=== PATIENT | female | born 1995 | race Caucasian/White ===

== ENCOUNTER 2016-11-18 06:00 | Day surgery (SDC) | payer BC ==
[~2016-11-18 06:00] MED LIST: Buffered Lidocaine 1% SYR 3ML* 3 ML/SYR SYRINGE INTRADERM ONE
[2016-11-18 06:24] LABS: UR Preg Internal Control QC Line Present
[2016-11-18] MEDS ORDERED: ceFAZolin 2 GM PREMIX (*) 2 GM/50 ML BAG IVPB ONE (06:31)
[2016-11-18] MEDS ORDERED: Bupivacaine 0.5% SDV PF* 30 ML VIAL ONE (07:11)
[2016-11-18] MEDS ORDERED: fentaNYL* 50 MCG/ML 2 ML VIAL (100 MCG VIAL) ONE ×3 (07:25→09:55)
[2016-11-18] MEDS ORDERED: Midazolam* 1 MG/ML 5 ML VIAL (5 MG) ONE (07:25)
[2016-11-18] MEDS ORDERED: EPHEDrine (Pressors)* 50 MG/ML VIAL ONE (07:54)
[2016-11-18] MEDS ORDERED: HYDROcodone/ACETAMIN 5-325 MG* 1 TAB PO PRN (08:35)
[2016-11-18] MEDS ORDERED: Ketorolac INJ* 30 MG/ML 1 ML VIAL IV PRN (08:35)
[2016-11-18] MEDS ORDERED: DiMENhydriNATE IV* 50 MG/ML VIAL IV PUSH PRN (08:35)
[2016-11-18] MEDS ORDERED: Propofol* 10 MG/ML 20 ML BTL IV PUSH ONE (09:23)
[2016-11-18] MEDS ORDERED: Ketorolac INJ* 30 MG/ML 1 ML VIAL ONE (09:48)
[2016-11-18] MEDS ORDERED: HYDROcodone/ACETAMIN 5-325 MG* 1 TAB ONE (09:48)
[2016-11-18] MEDS: fentaNYL* 50 MCG/ML 2 ML VIAL (100 MCG VIAL) IV PRN ×2 (09:56→10:01)
[2016-11-18] MEDS ORDERED: oxyCODONE TAB* 5 MG TAB ONE (10:14)
[2016-11-18 10:49] VITALS: BP 151/83
--- NOTE | 2016-11-18 22:38 | OP ---
DATE OF OPERATION: 11/18/16 - [facility] DATE OF : [birth year] SURGEON: Alexis Cormier MD AVIONICS SYSTEMS ENGINEER: Aminah Mullins PA-C. ANESTHESIOLOGIST: Serg Trammell MD ANESTHESIA: Spinal PRE-OP DIAGNOSIS: Left ankle instability and peroneal tendon subluxation. POST-OP DIAGNOSIS: Left ankle instability and peroneal tendon subluxation OPERATIVE PROCEDURE: Reconstruction left ATFL with allograft, semitendinosus and groove deepening, left peroneal tendon. DESCRIPTION OF PROCEDURE: The patient was taken to the operating room where longitudinal incision was made over the distal fibula curving down toward the sinus tarsi area. We opened up over the peroneal tendons sheath by reflecting the peroneal retinaculum directly off the back of the fibula. The tendons themselves appear to be intact. There was some mild synovitis around the tendons, which was debrided. The brevis tendon appeared to be poorly contained within the groove and so the groove deepening was performed with osteotomy while in the posterior to lateral cortical corner driving the posterior cortex anteriorly with a small bone tamp. Two bone sutures of #1 Vicryl were used with a Paul Andrew suture in the retinaculum to repair the groove and the retinaculum. We then exposed anteriorly and noted that the anterior talofibular ligament was very much attenuated in the capsule, patulent and not robust. We fashioned the semitendinosus tendon by doubling it with a 0 Vicryl suture. We placed a small C-wire right at the junction of the anterior cartilage, neck of the talus. We overdrilled this 8 mm but only to a depth of 15 mm rather. We then fed the double end of the semitendinosus into this blind hole bringing the free suture out the medial side holding it deep and anchoring it with a 6.25 x 15 mm Bio- Tenodesis plug. We then brought the tendon back over the fibular cortex laterally anchoring it with an F3 plate. Good tension was obtained on the allograft repair. We then brought the retinaculum back over the entire repair of the plate, closing with 2-0 Vicryl and aayush for the skin and a compression dressing plaster splint applied. [id number]/[facility] #: [id number] [facility]
--- NOTE | 2016-11-18 23:08 | RAD ---
CPT II Codes: 6045F INDICATION: Left ankle ligament repair and left leg pain. Fluoroscopic services provided for referring physician. 1.5 seconds of fluoroscopy time was used. 3 spot images demonstrates internal fixation of the fibula. IMPRESSION: Fluoroscopic services provided for referring physician.
== END 2016-11-18 10:40 | disposition home or self-care (01) ==
LOC: OR 06:00
PROVIDERS: ATTEND Orthopaedic Surgery
DX: M25.372 Other instability, left ankle (principal); Z87.891 Personal history of nicotine dependence; E66.9 Obesity, unspecified; Z68.39 Body mass index [BMI] 39.0-39.9, adult
CPT/HCPCS: 76001; 81025; A9270-GY; C1713; C1776; J0690; J1885; J2250; J2704; J3010; L8699

== ENCOUNTER 2017-02-15 20:19 | Emergency (ER) | payer BC ==
[2017-02-15 21:12] VITALS: BP 107/88
[2017-02-15] MEDS ORDERED: Amoxicillin/Clavulanate TAB* 875 MG PO ONE (21:57)
[2017-02-15] MEDS ORDERED: Polymyx/Trimethoprim OPTH* 10 ML BTL RIGHT EYE ONE ×2 (21:57→22:08)
--- NOTE | 2017-02-15 22:05 | UC ---
Genet Levin Rebecca, scribed for Bernadine Coleman MD on 02/15/17 at 2114 . Eye Complaint HPI - HPI Summary HPI Summary: Pt is a 21 y/o F accompanied by her twin sons who presents to [facility] c/o eye erythema and drainage of her right eye. Sx started suddenly today and have been constant since onset. Additionally c/o sore throat, nasal congestion and nonproductive cough which have both been present for 5 days. Associated pain is currently moderate, ranked 4/10 and characterized as an ache. Pt states he 2 sons who are also here as pt have had similar sx ongoing x 2 weeks. Pt with fatigue, body aches. Pt took Robitussin immediately [employer]. Has not been taking Motrin or Tylenol. Denies fever, rashes. 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 Pt states getting poor sleep. Does not take any herbal supplements or vitamins. Pt is not . Patient's medications reviewed at today's visit - History of Current Complaint Chief Complaint: UCEye Stated Complaint: EYE IRRITATION Time Seen by Provider: 02/15/17 21:13 Hx Obtained From: Patient Hx Last Menstrual Period: 02/08/2017 Onset/Duration: Sudden Onset, Lasting Days - eye - 1 day, other sx - 5 days, Still Present Timing: Intermittent Episode Lasting Severity Initially: Moderate Severity Currently: Moderate Pain Intensity: 4 Pain Scale Used: 0-10 Numeric Aggravating Factor(s): Nothing Alleviating Factor(s): Nothing Associated Signs And Symptoms: Positive: Drainage (Clear). Negative: Fever - Allergies/Home Medications Allergies/Adverse Reactions: Allergies Allergy/AdvReac Type Severity Reaction Status Date / Time Nickel Allergy Severe SEVERE RASH Verified 11/18/16 06:26 Azithromycin [From Zithromax] Allergy Unknown Hives Verified 11/18/16 06:26 Home Medications: Home Medications Dextromethorphan Polistirex [Robitussin 12 Hour Cough] 02/15/17 [History] PMH/Surg Hx/FS Hx/Imm Hx Previously Healthy: Yes Endocrine History Of: Denies: Diabetes Cardiovascular History Of: Denies: Hypertension, Pacemaker/ICD GI/ History Of: Denies: Renal Disease Psychological History Of: Denies: Anxiety, Depression, Bipolar Disorder, Schizophrenia - Surgical History Surgical History: Yes Surgery Procedure, Year, and Place: 2008 [facility]CTOMY, [facility]. 2008 [place] , [facility] [place] 2008 RIGHT ANKLE SURGERY, [facility]. 2010 LEFT ANKLE SURGERY , [facility]. 2016 LEFT ANKLE SURGERY - Family History Known Family History: Positive: Other - [place] - Social History Occupation: Employed Full-time - 2 jobs Lives: With Family Alcohol Use: None Substance Use Type: None Smoking Status (MU): Current Some Day Smoker Type: Cigarettes Amount Used/How Often: PROCESS OF QUITTING, NONE FOR 2 DAYS (TOTAL 2 YEARS/NOT DURING ) Have You Smoked in the Last Year: Yes - Immunization History Most Recent Influenza Vaccination: not this year Most Recent Tetanus Shot: 05/07/16 Most Recent Pneumonia Vaccination: unsure Review of Systems Constitutional: Negative Skin: Negative Eyes: Drainage, Eye Redness ENT: Sore Throat, Other - nasal congestion, bilateral ear pain Respiratory: Cough - nonproductive Cardiovascular: Negative Gastrointestinal: Negative Genitourinary: Negative Motor: Negative Neurovascular: Negative Musculoskeletal: Negative Neurological: Negative Psychological: Negative All Other Systems Reviewed And Are Negative: Yes Physical Exam Triage Information Reviewed: Yes Appearance: Well-Nourished - tired appearing, congested Vital Signs: Initial Vital Signs Temp 98.6 F 02/15/17 21:08 Pulse 111 02/15/17 21:08 Resp 18 02/15/17 21:08 BP 107/88 02/15/17 21:08 Pulse Ox 99 02/15/17 21:08 Vital Signs Reviewed: Yes Eyes: Positive: Conjunctiva Inflamed, Discharge, Other: - SKYLER, EOM intact, no photophobia right eye injected, conjunctiva inflammed, yellow discharge ENT: Positive: Hearing grossly normal, Pharynx normal, Pharyngeal erythema, Nasal congestion, Nasal drainage, TM bulging, TM red - b/l TM ++ erythema, buldge, fluid R>L turbinates infalmmed yellow congestion + PND + erythema, no exudate, Other: - TM x 2 erythema, buldging, fluid R>L turbinates inflammed and boggy with thick yellow drainage + PND no tonsilar exudate Dental Exam: Normal Neck exam: Normal Neck: Positive: Supple, Nontender, No Lymphadenopathy Respiratory Exam: Normal Respiratory: Positive: Chest non-tender, Lungs clear, Normal breath sounds Cardiovascular Exam: Normal Cardiovascular: Positive: RRR, No Murmur, Pulses Normal Abdominal Exam: Normal Abdomen Description: Positive: Nontender, No Organomegaly Bowel Sounds: Positive: Present Musculoskeletal Exam: Normal Neurological Exam: Normal Neurological: Positive: Alert Psychological Exam: Normal Skin Exam: Normal Eye Complaint Course/Dx - Course Course Of Treatment: Pt with increased head congestion, cough and right eye injection. Pt with signficant b/l OM, sinus congestion and right conjunctivities on exam. hydrate. motrin/apap. polytrim. abx. secretion precaution, reassurance - Differential Dx/Diagnosis Provider Diagnoses: bilateral OM, conjunctivitis Discharge - Discharge Plan Condition: Stable Disposition: HOME Prescriptions: Amoxicillin/Clavulanate TAB* [Augmentin TAB 875*] 875 mg PO BID #20 tab Fluticasone NASAL SPRAY 50MCG* [Flonase NASAL SPRAY 50MCG*] 2 spray BOTH NARES DAILY #1 btl Patient Education Materials: Otitis Media (ED), Conjunctivitis (ED) Forms: *Work Release Referrals: Cruz Desouza MD [Primary Care Provider] - Additional Instructions: - Take antibiotics as prescribed until gone - Apply eye drop to right eye 3 times a day for 5 days - Stay well hydrated - drink plenty of non-alcoholic, non-caffinated beverages - Use nasal spray as prescribed - After you have been on antibiotics for 2 days - change your toothbrush and your pillowcase. These infections are spread by secretions - do NOT share eating or drinking utensils - clean items you share with other people such as cell phones, computer mouse, TV remote, computer tablets, etc - Okay to take over the counter decongestants and cough/cold medications The documentation as recorded by the Genet fuentes Rebecca accurately reflects the service I personally performed and the decisions made by , Bernadine Coleman MD.
== END 2017-02-15 22:55 | disposition home or self-care (01) ==
LOC: UCEAST 20:19
DX: H10.31 Unspecified acute conjunctivitis, right eye (principal); H66.93 Otitis media, unspecified, bilateral; Z88.1 Allergy status to other antibiotic agents; Z72.0 Tobacco use
CPT/HCPCS: 99213; A9270-GY; G0463

== ENCOUNTER → 2017-05-24 20:28 | Emergency (ER) | payer BC ==
[2017-05-24 20:37] VITALS: BP 149/89
== END | disposition left against medical advice (07) ==
LOC: ED 20:28
DX: T78.40XA Allergy, unspecified, initial encounter (principal); X58.XXXA Exposure to other specified factors, initial encounter; Z53.21 Procedure and treatment not carried out due to patient leaving prior to being seen by health care provider

== ENCOUNTER 2017-07-15 17:41 | Emergency (ER) | payer SELFPAY ==
--- NOTE | 2017-07-15 18:13 | UC ---
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 - History of Current Complaint Stated Complaint: BACK INJURY Time Seen by Provider: 07/15/17 18:08 Hx Obtained From: Patient Hx Last Menstrual Period: 02/08/2017 Onset/Duration: Sudden Onset Timing: Constant Severity Initially: Moderate Severity Currently: Moderate Pain Scale Used: 0-10 Numeric - 6 Character: Sharp, Dull, Aching Aggravating Factor(s): Movement, Lifting, Bending - Allergies/Home Medications Allergies/Adverse Reactions: Allergies Allergy/AdvReac Type Severity Reaction Status Date / Time Nickel Allergy Severe SEVERE RASH Verified 07/15/17 18:18 Azithromycin [From Zithromax] Allergy Unknown Hives Verified 07/15/17 18:18 Home Medications: Home Medications NK [No Home Medications Reported] 07/15/17 [History Confirmed 07/15/17] PMH/Surg Hx/FS Hx/Imm Hx Previously Healthy: Yes - Surgical History Surgical History: Yes Surgery Procedure, Year, and Place: 2007 [place]OMY, [facility]. [place] , [facility] [place]. [place] RIGHT ANKLE SURGERY, [facility]. 2010 LEFT ANKLE SURGERY , [facility]. 2016 LEFT ANKLE SURGERY - Family History Known Family History: Positive: Other - [place] - Social History Alcohol Use: None Substance Use Type: None Smoking Status (MU): Current Some Day Smoker Type: Cigarettes Amount Used/How Often: PROCESS OF QUITTING, NONE FOR 2 DAYS (TOTAL 2 YEARS/NOT DURING ) Have You Smoked in the Last Year: Yes - Immunization History Most Recent Influenza Vaccination: not this year Most Recent Tetanus Shot: 05/07/16 Most Recent Pneumonia Vaccination: unsure Review of Systems Constitutional: Negative Skin: Negative Eyes: Negative ENT: Negative Respiratory: Negative Cardiovascular: Negative Gastrointestinal: Negative Genitourinary: Negative Motor: Negative Neurovascular: Negative Musculoskeletal: Decreased ROM, Myalgia, Other: - LOWER BACK PAIN Neurological: Negative Psychological: Negative All Other Systems Reviewed And Are Negative: Yes Physical Exam Triage Information Reviewed: Yes Vital Signs Reviewed: Yes Eye Exam: Normal ENT Exam: Normal Dental Exam: Normal Neck exam: Normal Neck: Positive: 1 Respiratory Exam: Normal Cardiovascular Exam: Normal Abdominal Exam: Normal Musculoskeletal: Positive: Other: - LOWER BACK PAIN Neurological Exam: Normal Psychological Exam: Normal Skin Exam: Normal Back Pain Course/Dx - Differential Dx/Diagnosis Provider Diagnoses: LOWER BACK PAIN Discharge - Discharge Plan Condition: Stable Disposition: HOME Patient Education Materials: Low Back Strain (ED), Acute Low Back Pain (ED) Referrals: Cruz Desouza MD [Primary Care Provider] -
[2017-07-15 18:18] VITALS: BP 144/100
== END 2017-07-15 18:42 | disposition home or self-care (01) ==
LOC: UCEAST 17:41
DX: M54.5 Low back pain (principal); F17.210 Nicotine dependence, cigarettes, uncomplicated
CPT/HCPCS: 99212; G0463

== ENCOUNTER 2018-01-13 09:17 | Day surgery (SDC) | payer BC ==
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
[~2018-01-13 09:17] MED LIST changes: +Buffered Lidocaine 0.9% SYRIN* 5 ML/SYR SYRINGE INTRADERM ONE; -Buffered Lidocaine 1% SYR 3ML* 3 ML/SYR SYRINGE INTRADERM ONE
[2018-01-13] MEDS ORDERED: ceFAZolin 2 GM PREMIX (*) 2 GM/50 ML BAG IVPB ONE (09:44)
[2018-01-13] MEDS ORDERED: Lidocaine 1% INJ* 10 MG/ML 30 ML SDV ONE (10:12)
[2018-01-13] MEDS ORDERED: fentaNYL* 50 MCG/ML 2 ML VIAL (100 MCG VIAL) ONE (10:16)
[2018-01-13] MEDS ORDERED: Midazolam* 1 MG/ML 2 ML VIAL (2 MG) ONE (10:17)
[2018-01-13] MEDS ORDERED: Propofol* 10 MG/ML 20 ML BTL IV PUSH ONE (10:28)
[2018-01-13 11:21] VITALS: BP 122/79
[2018-01-13] MEDS ORDERED: oxyCODONE/Acetamin 5/325 MG* TAB ONE (11:23)
--- NOTE | 2018-01-14 09:46 | RAD ---
INDICATION: S 63.114A, right thumb MCP dislocation COMPARISONS: January 07, 2018 TECHNIQUE: Fluoroscopy was provided for a surgical procedure. Total fluoroscopy time is: 56 seconds FINDINGS: Spot images demonstrate percutaneous fixation across the first MCP joint. IMPRESSION: FLUOROSCOPY WAS PROVIDED FOR A SURGICAL PROCEDURE CPT II Codes: G9500
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
== END 2018-01-13 11:42 | disposition home or self-care (01) ==
LOC: OREAST 09:17
PROVIDERS: ATTEND Orthopaedic Surgery
DX: S63.114A Dislocation of metacarpophalangeal joint of right thumb, initial encounter (principal); Y04.0XXA Assault by unarmed brawl or fight, initial encounter; Y92.9 Unspecified place or not applicable; Z87.891 Personal history of nicotine dependence; Z68.41 Body mass index [BMI] 40.0-44.9, adult
CPT/HCPCS: 76000; 81025; A9270-GY; J0690; J2250; J2704; J3010

== ENCOUNTER 2018-06-29 17:51 | Emergency (ER) | payer BC ==
[2018-06-29] MEDS ORDERED: Tetan/Diph/Pertus SYR(Tdap)* 0.5 ML SYR(BOOSTRIX) use SYR IM ONE (19:41)
[2018-06-29] MEDS ORDERED: Cephalexin CAP* 500 MG PO ONE (20:00)
[2018-06-29] MEDS ORDERED: Ibuprofen TAB* 600 MG PO ONE (20:00)
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
[2018-06-29 20:44] VITALS: BP 132/80
== END 2018-06-29 20:43 | disposition home or self-care (01) ==
LOC: ED 17:51
DX: S41.112A Laceration without foreign body of left upper arm, initial encounter (principal); W26.0XXA Contact with knife, initial encounter; Y92.9 Unspecified place or not applicable; Z87.891 Personal history of nicotine dependence
CPT/HCPCS: 12001; 90471; 90715; 99282; A9270-GY

== ENCOUNTER 2019-06-09 10:09 | Emergency (ER) | payer BC, OTHER ==
--- OUTSIDE RECORDS SUMMARY | 2019-06-09 10:25 | XMS REPORT | Continuity of Care Document ---
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 Onset: 07/08/2011 Acute pharyngitis Cruz Desouza M.D. Onset: 02/29/2012 Malaise and fatigue Cruz Desouza M.D. Onset: 02/29/2012 Low back pain Cruz Desouza M.D. Onset: 05/01/2012 Acute lymphadenitis Cruz Desouza M.D. Onset: 05/14/2014 Social History Type Date Description Comments Sex Unknown Tobacco Use Start: Unknown Light tobacco smoker (10 or fewer cigarettes/day) ETOH Use Occasionally consumes alcohol Recreational Drug Use Denies Drug Use Tobacco Use Start: Unknown Light tobacco smoker (10 or fewer cigarettes/day) Allergies, Adverse Reactions, Alerts Active Allergies Reaction Severity Comments Date Nickel 10/09/2009 Zithromax 01/26/2010 Bactrim hives 05/31/2017 Medications Active Medications SIG Qnty Indications Ordering Date Provider Bupropion 1 by mouth twice 180tabs F34.1 Suzan Verduzco 05/29/2018 Hydrochloride ER (SR) daily CHELO Amor 150mg Tablets ER 12HR Clobetasol Propionate use twice aday 30gm Suzan Verduzco 05/31/2017 to leg CHELO Amor 0.05% Cream Nuvaring place one ring 3units Z30.8 Sabi Hankins, 05/14/2017 in for 3 weeks . BABY COUNSELOR 0.12-0.015mg/24HR Ring Zyrtec Allergy use as directed Unknown 10mg prn Capsules Medications Administered in Office Medication SIG Qnty Indications Ordering Provider Date TB Intradermal Test Jess Bui NP 07/03/2015 Injection TB Intradermal Test Jess Bui NP 06/14/2015 Injection Immunizations CPT Code Status Date Vaccine Lot # [id number] Given 06/14/2015 Influenza Vac, Quadrivalent, Slit Virus, Im [id number] 85547 Given 05/01/2012 Meningococcal Conjugate Vaccine,Serogroups For [id number] Intramuscular Use 13554 Given 04/12/2011 Gardasil vacine typs 6,11,16,18 3 dose schedule [id number] 58460 Given 09/08/2010 Gardasil vacine typs 6,11,16,18 3 dose schedule [id number] 57704 Given 08/06/2010 Gardasil vacine typs 6,11,16,18 3 dose schedule [id number] 26365 Given 12/28/2004 Tdap Tetanus, W Pertussis 23374 Given 06/17/1998 DTaP Immunization 89171 Given 06/09/1998 MMR Virus Immunization 03488 Given 05/30/1998 (IPV) Inactive Poliovirus Vaccine 30632 Given 05/30/1998 (Hib) Hemoplilus Influenza B 51427 Given 05/20/1995 MMR Virus Immunization 72782 Given 05/20/1995 DTaP Immunization 26165 Given 02/22/1994 (Hib) Hemoplilus Influenza B 00632 Given 02/22/1994 DTaP Immunization 86339 Given 02/22/1994 (IPV) Inactive Poliovirus Vaccine 46072 Given 02/12/1994 Hepatitis B Immunization, -19 Years 41869 Given 1993 (IPV) Inactive Poliovirus Vaccine 49749 Given 1993 DTaP Immunization 59389 Given 1993 (Hib) Hemoplilus Influenza B 24026 Given 1993 Hepatitis B Immunization, -19 Years 54088 Given 1993 (IPV) Inactive Poliovirus Vaccine 09130 Given 1993 DTaP Immunization 98840 Given 1993 (Hib) Hemoplilus Influenza B 18827 Given 1993 Hepatitis B Immunization, [place]-19 Years Vital Signs Date Vital Result Comment 05/20/2019 5:07pm BP Systolic 138 mmHg BP Diastolic 90 mmHg Heart Rate 80 /min Body Temperature 97.9 F Respiratory Rate 12 /min Height 64.5 inches 5'4.50" Weight 232.00 lb BMI (Body Mass Index) 39.2 kg/m2 03/08/2019 10:15am BP Systolic 122 mmHg BP Diastolic 76 mmHg Heart Rate 66 /min Body Temperature 97.7 F Respiratory Rate 16 /min Height 64.5 inches 5'4.50" Weight 228.00 lb BMI (Body Mass Index) 38.5 kg/m2 Results Test Date Facility Test Result H/L Range Note CBC Electronic (Fma New) 03/08/2019 [facility] WBC 9.14 4.0-10.0 (607)- - RBC 4.73 3.93-6.0 Hemoglobin (Fma/CMC/CTX) 12.2 g/dL 12.0-17.0 Hematocrit (Fma/CMC/CTX) 37.7 % 35.0-50.0 Mean Corpuscular Vol 79.7 fL Low 80-95 Mean Corpuscular Hemoglobin 25.8 pg 25.6-32.2 Mean Corpuscular Hemo Concen 32.4 g/dL 32.2-36.0 Platelets 325 10^3/ul 163-400 RDW-CV 14.6 High 11.6-14.4 Mean Platelet Volume 9.7 fL 8.0-12.4 Absolute Neutrophils BLD 6.26 High 1.56-6.13 Absolute Lymphocytes 1.97 1.18-3.74 Absolute Monocytes BLD Auto 0.71 0.24-0.82 Absolute Eos Blood 0.17 0.04-0.54 Absolute Basophils 0.02 0.01-0.08 Neutrophil % 68.4 % 34.0-70.0 Lymph% 21.6 % 20.0-52.0 Monocytes % 7.8 % 5.0-12.0 Eos % 1.9 % 0.7-7.0 Basophil% 0.2 % 0-1.2 Iron And 03/08/2019 [facility] Iron Bind.Cap.([facility]) 435 g/dL 250-450 [address] [facility] [address] [place] [address] (607)- - [facility] 323 g/dL 131-425 Iron 112 g/dL 27-159 Iron Saturation 26 % 15-55 1 1 sst Procedures Description No Information Available Medical Devices Description No Information Available Encounters Type Date Location Provider Dx Diagnosis Office Visit 03/08/2019 10:15a Main Office Norah Fernando, E61.1 Iron deficiency Maribel-C F33.1 Major depressive disorder, recurrent, moderate Assessments Date Code Description Provider 05/20/2019 R59.0 Localized enlarged lymph nodes Suzan Amor, 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 If they don't, and if they worsen, please call or come back.AllComments:1. Patient has been queried about patient's goals/preferences and functional/lifestyle goals at relevant visits. If relevant, describe: Has been discussed, noted above2. Treatment goals as explainedto the patient: see above3. Are there barriers to meeting treatment goals? Yes If Yes, please describe: Barriers include possible insurance limits, disease process, and difficulty with lifestyle changes4. Self-Management goals as described to the patient: Yes, see above As always, we strongly encourage a healthy diet and making physical activity a part of your every day life. If you have questions about how or where to start, please contact the office. Functional Status Description No Information Available Mental Status Description No Information Available Referrals Description No Information Available
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
[2019-06-09] MEDS: Ibuprofen TAB* 600 MG PO ONE (13:00)
[2019-06-09 14:43] VITALS: BP 146/94
== END 2019-06-09 14:43 | disposition home or self-care (01) ==
LOC: ED 10:09
DX: S16.1XXA Strain of muscle, fascia and tendon at neck level, initial encounter (principal); V43.52XA Car driver injured in collision with other type car in traffic accident, initial encounter; Y92.410 Unspecified street and highway as the place of occurrence of the external cause; Z87.891 Personal history of nicotine dependence; Z79.899 Other long term (current) drug therapy; Z88.1 Allergy status to other antibiotic agents; Z88.2 Allergy status to sulfonamides
CPT/HCPCS: 72040; 99281; A9270-GY